=== PATIENT | female | born 1955 | race Caucasian/White ===

== ENCOUNTER 2016-10-09 18:35 | Emergency (ER) | payer OTHER ==
[2016-10-09 19:09] VITALS: BP 167/68
[2016-10-09] MEDS ORDERED: oxyCODONE/Acetamin 5/325 MG* TAB PO ONE (20:20)
[2016-10-09] MEDS ORDERED: Tetan/Diph/Pertus SYR(Tdap)* 0.5 ML SYR(BOOSTRIX) use SYR IM ONE (21:25)
--- NOTE | 2016-10-09 21:48 | RAD ---
Indication: Left knee pain after fall. 4 views of the knee demonstrates no definite fracture. Joint space narrowing is noted in the medial compartment. No joint effusion is noted. IMPRESSION: Joint space narrowing medial compartment left knee.
--- NOTE | 2016-10-09 22:17 | ED ---
Makenna Bueno Michael, scribed for Leigh Buitrago MD on 10/09/16 at 2025 . Adult Trauma - HPI Summary HPI Summary: 61 y/o female comes to the ED presenting with bilat knee pain after a fall while feeding her horses today at 1700. The pt states she fell on the frozen ground and the pain is aggravated upon bearing weight. She also reports back pain, and she denies abd pain, neck pain, and head trauma. She does not recall if her Tetanus is up to date. The PMHx and FHx are significant for HTN and hyperlipidemia. - History of Current Complaint Chief Complaint: EDExtremityLower Stated Complaint: FALL/KNEE PAIN Time Seen by Provider: 10/09/16 19:56 Hx Obtained From: Patient, Medical Records Mechanism of Injury: Fall Loss of Consciousness: no loss of consciousness Onset/Duration: Started Hours Ago Onset of Pain: Immediate Onset Severity: Moderate Current Severity: Moderate Pain Intensity: 7 Pain Scale Used: 0-10 Numeric Location: Extremities - right and left knee Aggravating Factor(s): Weight Bearing Associated Signs & Symptoms: Positive: Negative - neck pain. no head trauma., Other: - back pain.. Negative: Abdominal Pain - Allergy/Home Medications Allergies/Adverse Reactions: Allergies Allergy/AdvReac Type Severity Reaction Status Date / Time No Known Allergies Allergy Verified 10/09/16 19:09 PMH/Surg Hx/FS Hx/Imm Hx Previously Healthy: No - hyperlipidemia Cardiovascular History: Reports: Hx Hypertension - Cancer History Hx Chemotherapy: No Hx Radiation Therapy: No Infectious Disease History: No Infectious Disease History: Denies: Traveled Outside the [place] in Last 30 Days - Family History Known Family History: Positive: Hypertension, Other - hyperlipidemia - Social History Occupation: Employed Full-time Lives: With Family Review of Systems Negative: Fever Negative: Abdominal Pain Positive: Other - left and right knee pain All Other Systems Reviewed And Are Negative: Yes Physical Exam Triage Information Reviewed: Yes Vital Signs On Initial Exam: Initial Vitals Temp Pulse Resp BP Pulse Ox 97.7 F 79 17 167/68 100 10/09/16 19:04 10/09/16 19:04 10/09/16 19:04 10/09/16 19:04 10/09/16 19:04 Vital Signs Reviewed: Yes Appearance: Positive: Well-Appearing, No Pain Distress Skin: Positive: Warm, Skin Color Reflects Adequate Perfusion, Dry Eyes: Positive: EOMI, KAVON ENT: Positive: Pharynx normal, TMs normal Neck: Positive: Supple, Nontender Respiratory/Lung Sounds: Positive: Clear to Auscultation, Breath Sounds Present. Negative: Rales, Rhonchi, Wheezes Cardiovascular: Positive: RRR, Other - no gallop. Negative: Murmur, Rub Abdomen Description: Positive: Nontender, Soft, Other: - no rebound. Negative: Distended, Guarding Bowel Sounds: Positive: Present Musculoskeletal: Positive: Strength/ROM Intact, Other - left and right knee abrasion. left knee effusion Neurological: Positive: Normal, Alert, Oriented to Person Place, Time, CN Intact II-III Psychiatric: Positive: Affect/Mood Appropriate Diagnostics - Vital Signs Vital Signs Temp Pulse Resp BP Pulse Ox 10/09/16 19:04 97.7 F 79 17 167/68 100 - Laboratory Lab Statement: Any lab studies that have been ordered have been reviewed, and results considered in the medical decision making process. - Radiology knee XR Xray Interpretation: Positive (See Comments) - Joint space narrowing medial compartment left knee. Radiology Interpretation Completed By: Radiologist Adult Trauma Course/Dx - Course Course Of Treatment: pt with abrasions to both knees and mild paraspinal lumbar pain after fall right knee full range of motion no pain, left knee decreased flexion with small effusion. No ligamentous laxity, xray neg ok to go home with knee immobilizer - Diagnoses Provider Diagnoses: Knee pain, Abrasion Discharge - Discharge Plan Condition: Stable Disposition: HOME Prescriptions: oxyCODONE/Acetamin 5/325 MG* [Percocet 5/325 TAB*] 1 tab PO Q4H PRN #14 tab MDD 6 PRN Reason: Pain Patient Education Materials: Knee Pain (ED), Abrasion (ED) Referrals: Melisa Fall NP [Primary Care Provider] - Additional Instructions: you will follow up with Dr. Fall within the next 2 days. The documentation as recorded by the Makenna barkley Michael accurately reflects the service I personally performed and the decisions made by me, Leigh Buitrago MD.
== END 2016-10-09 22:31 | disposition home or self-care (01) ==
LOC: ED 18:35
DX: S80.212A Abrasion, left knee, initial encounter (principal); S80.211A Abrasion, right knee, initial encounter; M25.562 Pain in left knee; M25.561 Pain in right knee; W19.XXXA Unspecified fall, initial encounter; Y93.9 Activity, unspecified; Y92.9 Unspecified place or not applicable; Y99.9 Unspecified external cause status
CPT/HCPCS: 90471; 90715; 99282; A9270-GY

== ENCOUNTER 2020-05-25 09:20 | Observation (INO) ==
[~2020-05-25 09:20] MED LIST: Buffered Lidocaine 1% SYRIN 1 ml INTRADERM ONE; Dexamethasone IV 4 MG/ML VIAL 1 ml VIAL ONE; Famotidine IV 10 MG/ML 2 ml VIAL (20 mg) IV ONE; Ketamine HCL 50 mg/ml 10 ml VIAL (500 MG) ONE; Lactated Ringers 1000 ml BAG 1,000 ML IV SCH; Midazolam 2 mg/2 ml VIAL 1 mg/ml 2 ml VIAL (2 mg) ONE; Ondansetron 4 mg VIAL 2 MG/ML 2 ml VIAL ONE; Propofol 10 MG/ML 20 ML BTL ONE; Rocuronium 50 mg VIAL 10 mg/ml 5 ml VIAL (50 mg) ONE; Succinylcholine 200 mg VIAL 20 mg/ml 10 ml VIAL (200 mg) ONE; fentaNYL 250 mcg/5 ml 50 MCG/ML 5 ml VIAL (250 MCG) ONE
[2020-05-25] MEDS ORDERED: Buffered Lidocaine 1% SYRIN 1 ml INTRADERM ONE (09:31)
[2020-05-25] MEDS ORDERED: ceFAZolin 2 GM PREMIX 2 GM/50 ML BAG ONE (09:31)
[2020-05-25] MEDS ORDERED: Famotidine IV 10 MG/ML 2 ml VIAL (20 mg) ONE (09:31)
[2020-05-25] MEDS ORDERED: Bacitracin INJECTION 50,000 UNITS ONE (10:26)
[2020-05-25] MEDS ORDERED: Artificial Tear OPHTH.OINT 3.5 GM ONE (10:31)
[2020-05-25] MEDS ORDERED: Lidocaine 2% PF 5 ML VIAL ONE (11:38)
[2020-05-25] MEDS ORDERED: Acetaminophen IV 1 GM/100ML 100 ML ONE (11:39)
[2020-05-25] MEDS ORDERED: EPHEDrine (Pressors) 50 MG/ML VIAL ONE (11:49)
[2020-05-25] MEDS ORDERED: Levalbuterol 0.63MG/3ML NEB UNIT OF USE INH PRN (13:10)
[2020-05-25] MEDS ORDERED: DiMENhydriNATE IV 50 mg/ml 1 ml VIAL IV PUSH PRN (13:10)
[2020-05-25] MEDS ORDERED: Ondansetron 4 mg VIAL 2 MG/ML 2 ml VIAL IV PRN ×2 (13:10→13:14)
[2020-05-25] MEDS ORDERED: Naloxone 0.4 mg VIAL 0.4 mg/ml 1 ml VIAL IV PRN (13:10)
[2020-05-25] MEDS ORDERED: HYDROcodone/ACETAMIN 5/325 mg TAB PO PRN (13:14)
[2020-05-25] MEDS ORDERED: Magnesium Hydroxide LIQ 30 ML UDC PO PRN (13:14)
[2020-05-25] MEDS ORDERED: fentaNYL 100 mcg/2 ml 50 MCG/ML VIAL ONE (14:19)
[2020-05-25] MEDS: fentaNYL 100 mcg/2 ml 50 MCG/ML VIAL IV PRN ×2 (14:20→14:32)
[2020-05-25] MEDS: HYDROcodone/ACETAMIN 5/325 mg TAB PO PRN ×2 (17:19→21:27)
[2020-05-26] MEDS: HYDROcodone/ACETAMIN 5/325 mg TAB PO PRN ×3 (02:02→10:51)
[2020-05-26 08:15] VITALS: BP 113/48
== END 2020-05-26 11:20 | disposition home or self-care (01) ==
LOC: SSU 09:20 → OR 09:20
PROVIDERS: ADMIT Neurological Surgery; ATTEND Internal Medicine

== ENCOUNTER 2022-07-14 13:06 | Inpatient (IN) ==
[2022-07-14 13:47] LABS: ABS Lymphocytes 0.6 10^3/ul (1.0-4.8); ABS Monocytes 1.1 10^3/ul (0-0.8); ABS Neutrophils 9.3 10^3/ul (1.5-7.7); Hematocrit 34 % (35-47); Hemoglobin 11.2 g/dL (12.0-16.0); Lymphocyte % 5.6 %; Mean Corpuscular HGB Conc 33 g/dL (31-36); Mean Corpuscular Hemoglobin 29 pg (27-31); Mean Corpuscular Volume 88 fL (80-97); Mean Platelet Volume 7.6 fL (7.4-10.4); Nucleated Red Blood Cells % 0.1; Platelet Count 400 10^3/uL (150-450); Red Blood Count 3.89 10^6 /uL (3.70-4.87); Red Cell Distribution Width 15 % (10-15)
[2022-07-14 14:03] LABS: Potassium 3.7 mmol/L (3.5-5.0); Total Bilirubin 0.5 mg/dL (0.2-1.0)
[2022-07-14 14:09] LABS: Albumin/Globulin Ratio 1.3 (1-3); C Reactive Protein 2.52 mg/L (<8.01); Globulin 3.1 g/dL (2-4); Total Protein 7.1 g/dL (6.4-8.9); eGFR CKD-EPI 74.5 (>60)
[2022-07-14] MEDS ORDERED: Ondansetron 4 mg VIAL 2 MG/ML 2 ml VIAL ONE (14:32)
[2022-07-14 15:54] LABS: Urine Appearance Clear; Urine Bilirubin Negative (Negative); Urine Blood Negative (Negative); Urine Color Straw; Urine Glucose Negative (Negative); Urine Ketones Negative (Negative); Urine Nitrite Negative (Negative); Urine Protein Negative (Negative); Urine Specific Gravity 1.005 (1.002-1.030); Urine Urobilinogen Negative (Negative)
[2022-07-14] MEDS ORDERED: Piperacillin/Tazobac ADVAN 3.375 GM in NS 0.9% 100 ml BAG 100 ML IV ONE (16:48)
[2022-07-14] MEDS ORDERED: HYDROcodone/ACETAMIN 5/325 mg TAB PO PRN (16:59)
[2022-07-14] MEDS ORDERED: Zosyn per Pharmacy NOTE FOLLOW UP SCH (17:00)
[2022-07-14] MEDS ORDERED: Ondansetron ODT 4 mg TAB 4 MG TAB PO PRN (17:18)
[2022-07-14] MEDS: NS 0.9% 1000 ml BAG 1,000 ML IV SCH (19:22)
[2022-07-14] MEDS: Enoxaparin 40 MG/0.4 ML SYR SUBCUT SCH (21:46)
[2022-07-14] MEDS: Diphenoxylat/Atrop 2.5-0.025mg TAB PO SCH (21:46)
[2022-07-15] MEDS: ZOSYN 3.375 GM Q8H per EXTENDED INFUSION IV SCH ×3 (02:45→18:46)
[2022-07-15] MEDS: Diphenoxylat/Atrop 2.5-0.025mg TAB PO SCH ×3 (05:17→17:27)
[2022-07-15] MEDS: NS 0.9% 1000 ml BAG 1,000 ML IV SCH ×2 (05:19→15:28)
[2022-07-15 05:58] LABS: ABS Eosinophils 0.1 10^3/ul (0-0.6); ABS Lymphocytes 0.9 10^3/ul (1.0-4.8); ABS Monocytes 0.5 10^3/ul (0-0.8); ABS Neutrophils 3.8 10^3/ul (1.5-7.7); Eosinophil % 1.3 %; Hematocrit 28 % (35-47); Hemoglobin 9.4 g/dL (12.0-16.0); Lymphocyte % 16.9 %; Mean Corpuscular HGB Conc 33 g/dL (31-36); Mean Corpuscular Hemoglobin 29 pg (27-31); Mean Corpuscular Volume 87 fL (80-97); Mean Platelet Volume 7.5 fL (7.4-10.4); Nucleated Red Blood Cells % 0.1; Platelet Count 238 10^3/uL (150-450); Red Blood Count 3.23 10^6 /uL (3.70-4.87); Red Cell Distribution Width 15 % (10-15); White Blood Count 5.2 10^3/uL (3.5-10.8)
[2022-07-15 06:52] LABS: Albumin 3.2 g/dL (3.2-5.2); Albumin/Globulin Ratio 1.5 (1-3); Calcium 8.6 mg/dL (8.6-10.3); Globulin 2.1 g/dL (2-4); Potassium 3.6 mmol/L (3.5-5.0); Total Bilirubin 0.5 mg/dL (0.2-1.0); Total Protein 5.3 g/dL (6.4-8.9); eGFR CKD-EPI 73.4 (>60)
[2022-07-15] MEDS: Enoxaparin 40 MG/0.4 ML SYR SUBCUT SCH (21:55)
[2022-07-16] MEDS: Diphenoxylat/Atrop 2.5-0.025mg TAB PO SCH ×2 (00:29→05:10)
[2022-07-16] MEDS: ZOSYN 3.375 GM Q8H per EXTENDED INFUSION IV SCH (03:15)
[2022-07-16 05:26] LABS: ABS Eosinophils 0.1 10^3/ul (0-0.6); ABS Lymphocytes 1.1 10^3/ul (1.0-4.8); ABS Monocytes 0.1 10^3/ul (0-0.8); ABS Neutrophils 2.3 10^3/ul (1.5-7.7); Eosinophil % 3.2 %; Hematocrit 27 % (35-47); Hemoglobin 9.2 g/dL (12.0-16.0); Lymphocyte % 30.9 %; Mean Corpuscular HGB Conc 34 g/dL (31-36); Mean Corpuscular Hemoglobin 30 pg (27-31); Mean Corpuscular Volume 88 fL (80-97); Mean Platelet Volume 7.7 fL (7.4-10.4); Platelet Count 215 10^3/uL (150-450); Red Cell Distribution Width 15 % (10-15); White Blood Count 3.7 10^3/uL (3.5-10.8)
[2022-07-16 05:49] LABS: Calcium 8.6 mg/dL (8.6-10.3); Potassium 3.7 mmol/L (3.5-5.0); eGFR CKD-EPI 89.2 (>60)
[2022-07-16 07:41] VITALS: BP 117/65
== END 2022-07-16 10:00 | disposition home or self-care (01) | DRG 864 ==
LOC: CHOA 13:06 → SSU 16:43
PROVIDERS: ADMIT Internal Medicine Hematology & Oncology; ATTEND Internal Medicine Medical Oncology